=== PATIENT | male | born 1950 | race Caucasian/White ===

== ENCOUNTER 2017-12-11 15:43 | Emergency (ER) | payer MEDICARE, OTHER ==
--- NOTE | 2017-12-11 15:52 | PD ---
HPI Chief Complaint: Psychiatric Symptoms Time Seen by Provider: 15:51 Travel History International Travel<30 days: No Contact w/Intl Traveler<30days: No History of Present Illness HPI 67-year-old male brought in by [place] [facility] as a transfer from [facility], where the patient was treated for possible overdose of alprazolam 0.5 mg, reportedly taking 40 tablets on December 09. Patient was medically cleared by [facility], and is now here for psychiatric evaluation and possible hospitalization under the Liz[place] act. Patient is ambulatory to the room and appears in no acute distress. He did admit to EMS that he was suicidal. [facility] Social History Alcohol Use: No Tobacco Use: Yes Substance Use: No Allergies-Medications (Allergen,Severity, Reaction): Coded Allergies: No Known Allergies (Unverified , 12/11/17) Review of Systems Except as stated in HPI: all other systems reviewed are Neg General / Constitutional: No: Fever Eyes: No: Visual changes HENT: No: Headaches Cardiovascular: No: Chest Pain or Discomfort Respiratory: No: Shortness of Breath Gastrointestinal: No: Abdominal Pain Genitourinary: No: Dysuria Musculoskeletal: No: Pain Skin: No Rash Neurologic: No: Weakness Psychiatric: Positive: Depression, Suicidal Ideations Endocrine: No: Polydipsia Hematologic/Lymphatic: No: Easy Bruising Physical Exam Narrative GENERAL: Appears in no acute distress. SKIN: Warm and dry. Normal color. Normal turgor. HEAD: Atraumatic. Normocephalic. EYES: Pupils equal and round. No scleral icterus. No injection or drainage. ENT: No nasal bleeding or discharge. Mucous membranes pink and moist. Pharynx is clear. Airways patent. NECK: Trachea midline. Supple and nontender. CARDIOVASCULAR: Regular rate and rhythm. RESPIRATORY: No accessory muscle use. Clear to auscultation. Breath sounds equal bilaterally. GASTROINTESTINAL: Abdomen soft, non-tender, nondistended. Hepatic and splenic margins not palpable. MUSCULOSKELETAL: Extremities without clubbing, cyanosis, or edema. No obvious deformities. NEUROLOGICAL: Awake and alert. No obvious cranial nerve deficits. Motor grossly within normal limits. Five out of 5 muscle strength in the arms and legs. Normal speech. PSYCHIATRIC: Appropriate mood and affect; insight and judgment normal. Data Data Last Documented VS Vital Signs Date Time Temp Pulse Resp B/P (MAP) Pulse Ox O2 Delivery O2 Flow Rate FiO2 3/25/18 15:59 98.2 91 20 144/88 (106) 99 Orders Orders Psych Screen (12/11/17 15:59) MDM Medical Decision Making Medical Screen Exam Complete: Yes Emergency Medical Condition: Yes Medical Record Reviewed: Yes Differential Diagnosis Liz[place] act. Depression. Suicidal ideation Narrative Course Patient has already been medically cleared prior to arrival. Psych eval is ordered Condition: Stable Mumtaz Sharma Dec 11, 2017 15:52
[2017-12-11 15:59] VITALS: BP 144/88; PULSE 91; RESP 20; TEMP 98.2; O2SAT 99
[2017-12-11] MEDS ORDERED: IPRAAER INH (16:08)
[2017-12-11] MEDS ORDERED: FOSI40TA PO (16:08)
[2017-12-11] MEDS ORDERED: AMLO5TAB2 PO (16:08)
[2017-12-11] MEDS ORDERED: AZIT250T3 PO (16:08)
[2017-12-11] MEDS ORDERED: ASPI81CH7 CHEW (16:08)
[2017-12-11] MEDS ORDERED: CIPR500T2 PO (16:08)
[2017-12-11] MEDS ORDERED: SYMB160A INH (16:08)
[2017-12-11 19:59] VITALS: BP 164/79; PULSE 102; RESP 18; TEMP 99.1; O2SAT 93
[2017-12-11 22:36] VITALS: BP 140/92; PULSE 100; RESP 18; TEMP 99.5; O2SAT 94
[2017-12-12] MEDS ORDERED: ALPR0.5T3 PO (02:15)
[2017-12-12] MEDS ORDERED: PERC10TA27 PO (02:15)
[2017-12-12] MEDS ORDERED: HYDR-3583 PO (02:19)
[2017-12-12 02:28] VITALS: BP 144/98; PULSE 104; RESP 18; TEMP 99.1; O2SAT 94
[2017-12-12 06:38] VITALS: BP 135/87; PULSE 94; RESP 18; TEMP 99.1; O2SAT 94
--- NOTE | 2017-12-12 09:39 | PD ---
Physical Exam Time Seen by Provider: 09:[address] Remy has evaluated patient, lifted Lizarraga act and cleared patient for discharge. Data Data Last Documented VS Vital Signs Date Time Temp Pulse Resp B/P (MAP) Pulse Ox O2 Delivery O2 Flow Rate FiO2 12/12/17 06:38 99.1 94 18 135/87 (103) 94 Room Air Orders Orders Psych Screen (12/11/17 15:59) Diet Regular Basic (12/11/17 Dinner) Diet Regular Basic (12/12/17 Breakfast) Diet Regular Basic (12/12/17 Dinner) MDM Supervised Visit with JUNI: No Narrative Course Dr. Remy has evaluated patient, lifted Lizarraga act and cleared patient for discharge. Patient contracts safety. Denies suicidal or homicidal ideations. Patient will be provided community resource packet to [facility] for follow-up. Has friends and family for support. Patient was medically cleared by alternate provider prior to psych screening. Patient has been evaluated by psychiatry and and is now cleared for discharge. Diagnosis Primary Impression: Mild alprazolam use disorder Referrals: [facility] (Out patient) [facility] Primary Care Physician Psychiatrist Gary BAZAN Behavioral Patient Instructions: Benzodiazepine Abuse (ED), General Instructions Additional Instruction: Contract safety to your self and others Stop using drugs Follow-up with psychiatry Follow-up with primary care provider Follow-up with Gab Espinoza Return to the emergency department immediately with worsening of symptoms Med/Other Pt SpecificInfo: No Change to Meds, No Meds Exist/No RX given Disposition: 01 DISCHARGE HOME Condition: Stable Faby Bobo Dec 12, 2017 09:39
--- NOTE | 2017-12-12 13:14 | PD.PSY.CON ---
Provisional Diagnosis Admission Date Callaway I. hypnotic-sedative use disorder, history of anxiety Callaway II. Deferred Callaway III. COPD, hypertension History of Present Illness Service Psychiatry Consult Requested By ER Reason for Consult Under Lizarraga act Primary Care Physician DO DG Ramos The patient was seen this morning at 8:30 AM. The patient is a 67-year-old man, domiciled with his significant other in the [facility], no kids, unemployed, supported by Social Security, with psychiatric history of depression, benzodiazepine use disorder, no previous suicidal attempts, no psychiatric hospitalizations, medical history of COPD, hypertension, who was brought in by [facility] as a transfer from [facility], where the patient was treated for possible overdose of alprazolam 0.5 mg, reportedly taking 40 tablets on December 09. Patient was medically cleared by [facility], and is now here for psychiatric evaluation and possible hospitalization under the Lizarraga act. Patient was seen today for psychiatric evaluation. Patient is calm and cooperative. Patient reports that he did not try to commit suicide and he did not take 40 pills. Patient says that he was just trying to go to sleep deeply and he took about 5- 10 pills of Xanax in a period of time of 12 hours. Patient reports that he has been taking Xanax prescribed by PCP for years. He admits that in the last weeks he has been overusing the medication for anxiety. Patient reports that he has not been depressed, he denies anhedonia, he denies hopelessness, he denies helplessness, he denies suicidal or homicidal ideation, he denies visual and auditory hallucinations. Patient reports that he is building a new house with his boyfriend he is looking forward to move and be very happy. Patient is future oriented, oriented 3, no agitation, no aggressive behavior, no psychosis present. He is significant other, which name is Nas, was contacted by phone and he does not have any safety concerns about the patient. He confirms that the patient has been overtaking his Xanax due to the anxiety of building a house and insomnia. He does not think that his boyfriend meet criteria or benefits of involuntary psychiatric admission for Review of Systems Constitutional: DENIES: Diaphoretic episodes, Fatigue, Fever, Weight gain, Weight loss, Chills, Dizziness, Change in appetite, Night Sweats Endocrine: DENIES: Heat/cold intolerance, Polydipsia, Polyuria, Polyphagia Eyes: DENIES: Blurred vision, Diplopia, Eye inflammation, Eye pain, Vision loss , Photosensitivity, Double Vision Ears, nose, mouth, throat: DENIES: Tinnitus, Hearing loss, Vertigo, Nasal discharge, Oral lesions, Throat pain, Hoarseness, Ear Pain, Running Nose, Epistaxis, Sinus Pain, Toothache, Odynophagia Respiratory: DENIES: Apneas, Cough, Snoring, Wheezing, Hemoptysis, Sputum production, Shortness of breath Cardiovascular: DENIES: Chest pain, Palpitations, Syncope, Dyspnea on Exertion , PND, Lower Extremity Edema, Orthopnea, Claudication Gastrointestinal: DENIES: Abdominal pain, Black stools, Bloody stools, Constipation, Diarrhea, Nausea, Vomiting, Difficulty Swallowing, Anorexia Genitourinary: DENIES: Sexual dysfunction, Urinary frequency, Urinary incontinence, Urgency, Hematuria, Dysuria, Nocturia, Penile Discharge, Testicular Pain, Testicular Swelling Musculoskeletal: DENIES: Joint pain, Muscle aches, Stiffness, Joint Swelling, Back pain, Neck pain Integumentary: DENIES: Abnormal pigmentation, Nail changes, Pruritus, Rash Hematologic/lymphatic: DENIES: Bruising, Lymphadenopathy Immunologic/allergic: DENIES: Eczema, Urticaria Neurologic: DENIES: Abnormal gait, Headache, Localized weakness, Paresthesias, Seizures, Speech Problems, Tremor, Poor Balance Past Family Social History Coded Allergies: No Known Allergies (Unverified , 12/11/17) Reported Medications Hydrocodone-Acetaminophen (Hydrocodone-Acetaminophen) 10-325 mg Tab, 1 TAB PO Q4H Y for PAIN, TAB 0 Refills 12/12/17 Alprazolam (Alprazolam) 0.5 Mg Tab, 0.5 MG PO BID Y for ANXIETY, TAB 0 Refills 12/12/17 Fosinopril (Fosinopril) 40 Mg Tab, 40 MG PO DAILY, #30 TAB 0 Refills 12/11/17 Ciprofloxacin (Ciprofloxacin) 500 Mg Tab, 500 MG PO BID for Infection, TAB 0 Refills 12/11/17 Budesonide-Formoterol Inh (Symbicort Inh) 160-4.5 Mcg/Act Aero, 2 PUFF INH Q12HR , #1 INHALER 0 Refills 12/11/17 Azithromycin (Azithromycin) 250 Mg Tab, 250 MG PO DAILY for Infection, TAB 0 Refills 12/11/17 Aspirin (Aspirin Children's) 81 Mg Chew, 81 MG CHEW DAILY, TAB 0 Refills 12/11/17 Amlodipine (Amlodipine) 5 Mg Tab, 5 MG PO DAILY for Blood Pressure Management, # 30 TAB 0 Refills 12/11/17 Ipratropium-Albuterol Inh (Combivent Respimat Inh) 20-100 Fdc/Act Aero, 1 PUFF INH QID for Asthma Management, #1 INHALER 0 Refills 12/11/17 Discontinued Reported Medications Oxycodone-Acetaminophen (Percocet) 10-325 mg Tab, 1 TAB PO Q4H Y for PAIN, TAB 0 Refills 12/12/17 Family Psych History He denies family psychiatric history Social History Patient was born and raised in [place], he lives in [place] with his boyfriend, has no kids, unemployed, supported by Social Security, highest level of education is high school Patient's Strengths (min. 2) support of boyfriend Physical Exam Vital Signs Vital Signs Date Time Temp Pulse Resp B/P (MAP) Pulse Ox O2 Delivery O2 Flow Rate FiO2 12/12/17 11:39 12/12/17 06:38 99.1 94 18 94 Room Air Mental Status Examination Appearance: Appropriate Consciousness: Alert Orientation: x4 Motor Activity: Normal gait Speech: Unremarkable Language: Adequate Fund of Knowledge: Adequate Attention and Concentration: Adequate Memory: Unremarkable Mood: Appropriate Affect: Appropriate Thought Process & Associations: Intact Thought Content: Appropriate Hallucination Type: None Delusion Type: None Suicidal Ideation: No Suicidal Plan: No Suicidal Intention: No Homicidal Ideation: No Homicidal Plan: No Homicidal Intention: No Insight: Adequate Judgment: Adequate Assessment & Plan Problem List: (1) Sedative hypnotic or anxiolytic dependence ICD Codes: F13.20 - Sedative, hypnotic or anxiolytic dependence, uncomplicated Assessment & Plan: On psychiatric evaluation today the patient does not present any evidence of symptomatology of depression, anxiety, jose manuel or psychosis. Patient denies suicidal and homicidal ideation, he denies visual and auditory hallucinations. Recent overdose with benzodiazepines is to be the result of an elective use of Xanax and tolerance build throughout the time. He does not meet criteria for involuntary psychiatric admission at this moment. He is boyfriend is in agreement that the patient is safe to be discharged. Patient will be discharged, support and psychoeducation provided, cheryl act will be lifted Assessment & Plan Estimated LOS: Alejandro Peters MD Dec 12, 2017 13:14
== END 2017-12-12 11:41 | disposition home or self-care (01) ==
LOC: NEPD 15:43 → NEPJ 12-12 11:41
DX: F13.20 Sedative, hypnotic or anxiolytic dependence, uncomplicated (principal); F41.9 Anxiety disorder, unspecified; G47.00 Insomnia, unspecified; I10 Essential (primary) hypertension; F32.9 Major depressive disorder, single episode, unspecified; J44.9 Chronic obstructive pulmonary disease, unspecified; Z72.0 Tobacco use
CPT/HCPCS: 99283